=== PATIENT | female | born 1985 | race Caucasian/White ===

== ENCOUNTER 2021-04-27 17:45 | Observation (INO) | payer SELFPAY, OTHER ==
[2021-04-22 13:12] LABS: Hematocrit 43.8 % (37-47); Mean Corpuscular Hgb 28.1 pg (27.0-32.0); Mean Corpuscular Volume 87.8 fL (81-99); Mean Platelet Vol. 8.9 fl (6.2-12.0); Platelet Count 312 K/mm3 (150-450); RBC Distribution Width CV 12.7 % (11.6-14.6); RBC Distribution Width SD 40.9 fl (35.1-43.9); Red Blood Count 4.99 M/mm3 (4.2-5.4); White Blood Count 5.2 K/mm3 (4.4-11.0)
[2021-04-22 13:45] LABS: Prothrombin Time (Protime)PT. 12.8 SECONDS (11.7-14.9)
[2021-04-22 13:46] LABS: Partial Thromboplast Time 29.4 Seconds (24.1-36.2)
[2021-04-22 14:13] LABS: Creatinine, Serum 0.77 mg/dL (0.55-1.02); EST Glomerular Filtration Rate 91 mL/min (>60); Est Glom Filt Rate - Afr Amer 110 mL/min (>60); Magnesium 2.2 mg/dL (1.6-2.6)
--- NOTE | 2021-04-26 17:13 | PCM.HP.BLA ---
History and Physical Date of Admission: 04/27/21 Surgical History and Physical Evelyn Sousa, a 35 year old female 3 0 3 0 3, presents for LAVH/BSO on April 27, 2021 at 11:00. -- Chronic cyclic Pelvic Pain, Endometriosis -- Referral from [facility] for Low Pelvic Pain and Irregular Menses. 35 y.o. G 6 P 3 non-smoker with history since January of Irregular Menses and low pelvic pain that she admits has been for several years. Reports she seen her PCP at [facility] and was put on an OCP(Sprintec) to help regulate her menses and down regulate her ovaries to see if would help with the pain, she admits she started taking them, they didn't seem to help, so she stopped, then restarted them after not taking for 1 week. Her spouse had Vasectomy several years ago for control, as that is not a concern for her. Low Mid Pelvic Pain,Irregular Menses; Pain is cyclic. It occurs all the time. It is located in the lower abdomen. Evelyn characterizes the quality sharp. Evelyn characterizes the quality aching. Severity is moderate and not improving It is relieved by OCPs marginally effective a few years ago. Associated signs and symptoms are Irregular menses; has Bio-T implants in place about 3 weeks ago. Associated signs and symptoms are History of C. difficile years ago. Additional comments are: Referred by [facility].; Additional comments are: Pain seems to cycle when she does have menses. OCPs helped marginally between second and third , pain gets worse every year and now almost intolerable. MEDICATIONS HISTORY: ALLERGIES: NKDA Infections - Chicken pox Illnesses - none Accidents - None Hospitalizations - None Review of Systems: GENERAL - Denies fever, or chills SKIN - Denies skin changes EYES - Denies visual changes EARS - Denies difficulty hearing NOSE - Denies nasal congestion or bleeding MOUTH - Denies sore throat or difficulty swallowing NECK - Denies pain or swelling RESPIRATORY - Denies shortness of breath or wheezing CARDIOVASCULAR - Denies palpitations or chest pain GASTROINTESTINAL - Denies nausea, vomiting, diarrhea, constipation GENITOURINARY - Denies dysuria, frequency of urination, incontinence of urine MUSCULOSKELETAL - Denies joint or muscle pain NEUROLOGICAL - Denies localized numbness or weakness PSYCHIATRIC - Denies depression or anxiety ENDOCRINE - Denies heat or cold intolerance, weight loss or gain HEMATO-IMMUNOLOGIC - Denies excesive bleeding with cuts SOCIAL HISTORY: Alcohol Use - None Smoking - Never Diet - no special diet Lifestyle - moderate stress lifestyle and Exercise - regular Seat Belt Use - always Employer - Homemaker Illicit Drug Use - None Sexual Activity - Spouse-Sig Other Name - Harinder Spouse-Sig Other Occupation - [employer]) Children Name(s) - Mildred Dailey (10), German(13), Thomasrubéntammie (17) Control - Vasectomy FAMILY HISTORY: nc MENSTRUAL HISTORY: LMP Known?- DefiniteAmount/Duration - 7 days, Regularity - Regular, Frequency - monthly days, LMP - 04/11/21, Age Onset Menarche - 17 PAST PREGNANCIES: Total Pregnancies - 6; Full Term Pregnancies - 3; Premature - 0; Abortions, Induced - 0; Abortions, Spontaneous - 3; Ectopics - 0; Multiple Births - 0; Living Children - 3 PHYSICAL EXAM BP- 144/82 Sitting, Right arm, regular cuff Weight- 139.08490 lbs Height- 61.5 inch BMI:25.9 CONSTITUTIONAL - NAD, well nourished, and well developed SKIN - No rash, lesions, or ulcers HEENT - Normocephalic, PERRLA, EOMI NECK - No nodes, no nuchal rigidity and thyroid normal size and texture LYMPH NODES - Palpation of lymph nodes in neck and groins within normal limits LUNGS - CTA x2 without wheezes, crackles or rales CARDIAC - Regular rate and rhythm without rubs, murmurs, or gallops ABDOMEN - Without hepatosplenomegaly, distention, masses, rebound, or guarding; normal bowel sounds; no hernias EXTREMITIES - No edema or calf tenderness NEUROLOGICAL - Cranial nerves II-XII grossly intact PSYCHIATRIC - A and O to time, place, person, mood and affect External Genitial Vagina - non-tender without lesions Urethra/Urethral Meatus - non-tender Bladder - non-tender Vagina - vaginal byrne are pink and moist without loss of rugae and no evidence of atropy Cervix - without cervical motion tenderness and has normal size and features without evident lesions and mild CMT Uterus - multiparous size 6 cm & wt 75-125 g Adnexa - clear without massess or tenderness and increased tenderness both adnexa ASSESSMENT/PLAN: 1. Endometriosis Site Uns and Pelvic And Perineal Pain Longstanding and severe. Pain has now become almost unbearable since she is no longer having children as her had a vasectomy. We discussed treatment options including going back to OCPs, using Depo-Provera, proceeding with a diagnostic laparoscopy, or proceeding with hysterectomy. Patient desires the latter option given higher chance of eliminating her pain. Plan to proceed with a LAVH/BSO. Discussed RBA's and all questions answered.
[2021-04-27] VITALS (24 sets, daily range): BP systolic 87–131; BP diastolic 37–72; PULSE 43–80; RESP 14–18; TEMP 36.4–36.8; O2SAT 97–100; BMI 25.2
[2021-04-27] MEDS: Lactated Ringers 1,000 ML 40 ML IV ×2 (07:00→20:32)
[2021-04-27] MEDS: Acetaminophen 500 MG Tablet 1000 MG PO ×3 (07:00→23:04)
[2021-04-27] MEDS: Gabapentin 600 MG Tablet PO (07:00)
[2021-04-27 09:15] LABS: Internal QC Validated? YES +Cl - CLEAR BKGD; Pregnancy, Urine Negative Negative
--- NOTE | 2021-04-27 09:49 | PCM.OPRPT ---
Report of Operation Date of Procedure: 04/27/21 Pre-Operative Diagnosis: Endometriosis, Pelvic Pain Post-Operative Diagnosis: Endometriosis, Pelvic Pain Surgery/Procedure Performed:: Laparoscopic Assisted Vaginal Hysterectomy and Bilateral Salpingo-Oophorectomy Description of Surgical Findings:: 10 cm uterus with normal-appearing fallopian tubes and ovaries. Surgeon: Rk Max precinct police lieutenant: Jane Benites precinct police lieutenant: Reta Nathan Type of Anesthesia: General (Endotracheal) Anesthesiologist: Reta Nathan Specimen's removed: Uterus and bilateral fallopian tubes and ovaries Drains: Rudd to straight drain Estimated Blood Loss (mL): 100 cc Fluids Replaced: Crystalloid Description of Procedure: Surgeon: Rk Max MD, FACOG Indications: This is a 35-year-old who is been having problems with endometriosis and pelvic pain. Conservative measures have not been helpful. Given this the patient desires that we proceed the above procedure. She has been counseled regarding the risk and indications of this procedure including the possibility of bleeding, infection, and injury to surrounding structures such as bowel bladder. She also understands that after this procedure she will need to be on hormone replacement therapy for an indefinite period of time and this may not relieve the pain that she has been having. All questions were answered. Procedure: Patient was taken to the operating room where after induction of general anesthesia she was placed in the dorsal lithotomy position and prepped and draped in the usual sterile fashion. A Rudd catheter was placed and bladder drained and then removed. Anterior cervix was grasped with a tenaculum and anterior cervix circumscribed with cautery on a setting of 35 W coagulation. Anterior vaginal mucosa was undermined and a 4 x 4 raytec sponge was placed to identify the peritoneal reflection of the bladder intraperitoneally. Conn cannula was placed and attention was turned towards the laparoscopic portion of the procedure. Approximately 26 cc of half percent ropivacaine was injected subumbilically, suprapubically, and midway between. A 5 mm bladeless trocar was introduced subumbilically and intraperitoneal placement confirmed. CO2 insufflation was completed and, under direct visualization, a 5 mm bladeless trocar was introduced suprapubically. A 5 mm bladeless trocar was introduced midway between these 2 ports. Enseal was used to cauterize the infundibulopelvic ligaments to the level of the round ligament and the Raytec placed in the vagina was visualized. Scissors was used to open the peritoneum and under direct visualization a narrow Ho Ho Kus was placed vaginally; CO2 gas was stopped and attention turned toward the vaginal hysterectomy portion of the procedure. The posterior aspect of the cervix was circumscribed with a knife and posterior peritoneum easily entered. Progressive bites were taken on either side of the uterine cervix and each pedicle ligated with 0 Vicryl suture. Superior pedicles were ligated ?2 with 0 Vicryl suture and sidewall pedicles were examined and oversewn where necessary with [id number] 0 Vicryl suture to achieve hemostasis. Posterior vaginal cuff was oversewn with running locked 0 Vicryl suture. Hemostasis was noted and peritoneum was closed in a pursestring fashion incorporating superior pedicles into the stitch. Vaginal cuff was then closed front to back with interrupted [id number] 0 Vicryl suture. Hemostasis was noted. Rudd catheter was reinserted and clear yellow urine was noted and the catheter was again removed. Attention was turned toward the laparoscopic portion of the procedure. CO2 insufflation was completed and pedicles were examined and noted to be hemostatic. Umm was placed across the vaginal cuff to help with postoperative hemostasis. Laparoscopic instruments with as much CO2 gas as possible was removed and skin incisions were closed with interrupted 4-0 Monocryl suture. Steri-Strips and OpSite was placed across the incisions. Patient tolerated the procedure well was taken to recovery room in satisfactory condition; sponge instrument and needle counts were all reportedly correct. Estimated blood loss for the case was 100 cc. Ancef 2 g IV was given prior to beginning the operative procedure. There were no apparent complications of the surgery. Specimen to pathology was uterus and bilateral fallopian tubes and ovaries. Grafts/Implants Used: None Complications None Admit VTE Documentation VTE Present on Admission: Yes VTE Mechan Device Prophylaxis: SCD's
[2021-04-27 09:50] LABS: Bedside Glucose 80 mg/dL (70-110)
--- NOTE | 2021-04-27 09:55 | PCM.DC ---
Discharge Instructions Diet Discharge Diet: No restrictions Activity Discharge Activity: May Shower and May Take a Tub Bath May resume sexual activity in: 6 weeks (nothing in the vagina.) Lifting Restrictions: 25 pounds for 6 weeks. Additional Activity Instructions:: Nothing in the vagina for 6 weeks please; no lifting more than 20-25 lbs for 6 weeks. Use Ibuprophen 800 mg orally every 8 hours as needed for pain. Can also add Tylenol 1000 mg every 8 hours if needed for pain. If Ibuprophen and Tylenol are not effective then use the Oxycodone but keep in mind it can cause serious constipation issues. Drink lots of water. Call if bleeding more than a pad per hour. Use the colace as constipation is a big issue after this type of surgery. Steps and walking are OK. Activity is encouraged but do not over do it !! Dressing / Incision Call your doctor if your incision/area has: Continuous Slow Oozing, Sudden Increased Bleeding, Increased Pain/ Swelling, Increased Redness and Foul Smelling Discharge Call your doctor if you observe: Fever of 101 or Higher, Inability to urinate, Inability to have a bowel movement, Using more than 1 pad per hour and - (Some vaginal bleeding may be noted for up to 4-8 weeks.) Cleanse incision/area with: - (Let the soapy water run over your incision, rinse and pat dry.) Additional Dressing/Incision Instructions:: The white strips (Steri Strips) on your incisions will fall off on their own. If they fall off and it bothers you it is okay to put Band-Aids across the incisions. Follow Up Care Please Follow Up With: Rk Max MD When: Call [phone] for an appointment to be seen in 2 weeks. Test Results: Test results from this visit will be discussed in further detail at your follow-up appointment, if applicable. Discharge Plan Admission Primary Reason for Your Visit: Vaginal Hysterectomy Attending Provider: Rk Max Primary Care Provider: Kem Shook Discharge Orders/Prescriptions Prescriptions: New oxycodone 5 mg capsule 5 mg PO Q6H PRN (Reason: pain) 7 Days Qty: 10 RF: 0 docusate sodium 100 mg tablet 100 mg PO BID PRN (Reason: constipation) Qty: 60 RF: 1 estradiol 2 mg tablet 2 mg PO DAILY Qty: 90 RF: 4 Continued multivitamin Capsule 1 cap PO DAILY RF: 0 Referrals / Follow Up: Kem Shook MD [Primary Care Provider] - Disposition Disposition (needs filled in before D/C Order can be placed): Home, Self Care
[2021-04-27] MEDS: Cefazolin 2 GM in 0.9% Normal Saline 100 ML IV (10:59)
--- NOTE | 2021-04-27 11:05 | HYST_PTH ---
PATIENT: SYLVIA SCHMIDT LOC: MS2 U#:[id number] AGE/SX: 35/F ROOM: MS209 RE04/27/[address]: Dr. Rk Max MD : [id number] BED: 1 DIS: 04/28/2021 SPEC #: [id number] RECD: 04/27/21 13:27 STATUS: NICOLAS MACHADO #: [id number] LAKEISHA: 04/27/21 11:[address]: Rk Max DEPT: SURGICAL PATHOLOGY RECD BY: Johnathon Masters ENTERED: 04/28/21 10:14 SP TYPE: HYSTERECT OTHR DR: Dr. Kem Shook MD Tissues: Uterus, NOS Procedures: Surgery Specimen Level V HEADER OPERATION: ERAS, hysterectomy, LAVH, BSO PRE-OP DIAGNOSIS: Chronic pelvic pain, endometriosis TISSUE SUBMITTED: Uterus, bilateral fallopian tubes and ovaries MICROSCOPIC DIAGNOSIS Uterus, bilateral fallopian tubes and ovary, hysterectomy and bilateral salpingo-oophorectomy: Cervix ? mild chronic inflammation. Endometrium ? proliferative endometrium. Myometrium - no pathologic diagnosis. Bilateral fallopian tubes - no pathologic diagnosis. Right ovary ? physiologic follicular and hemorrhagic corpus luteal cysts. Left ovary - physiologic follicular cysts. Right paratubal cyst. SJ:rg 04/29/2021 MICROSCOPIC DESCRIPTION Slides are reviewed. GROSS DESCRIPTION Received in fixative is one container labeled with the patient's name and designated uterus, bilateral fallopian tubes and ovaries. The specimen consists of a hysterectomy specimen consisting of uterus with cervix, attached right fallopian tube and ovary and detached left fallopian tube and ovary. The uterus with cervix weighs 105 gm and measures 10 x 6 x 5 cm. The serosal surface is bhardwaj, glistening. The ectocervical mucosa is unremarkable. The external os is oval in contour. The endocervical canal measures 3.5 cm in length and the endocervical mucosa is unremarkable. The endometrial cavity measures 5 cm in length and 2.5 cm width. The endometrium does not show any lesion and measures 0.2 cm in thickness. Sections of the uterine wall do not reveal any mass lesion and measures 2.5 cm in thickness. The right fallopian tube measures 8 cm in length and 0.7 cm in diameter. The fimbrial end is identified. No tubo-ovarian adhesions are noted. A paratubal cyst is noted measuring 1.5 cm in greatest dimension. It is filled with clear fluid. Sections of fallopian tube reveal unremarkable cut surfaces. The soft to cystic right ovary measures 4.5 x 3.5 x 2.5 cm. Sections reveal multiple cysts filled with clear fluid. The largest cyst measures 1 cm in greatest dimension. A corpus luteum is also noted which measures 1.5 cm in greatest dimension. The left fallopian tube measures 4.5 cm in length and 0.5 cm in dimeter. The fimbrial end is identified. Sections reveal unremarkable cut surfaces. The soft to cystic left ovary measures 3 x 3 x 2 cm. Sections reveal multiple cysts filled with clear fluid. The largest cyst measures 0.7 cm in greatest dimension. [employer]ractor [employer] sections are submitted in 12 cassettes as follows: 1??anterior cervix, 2??posterior cervix, 3 & 4 - anterior uterine wall, 5 & 6 - posterior uterine wall, 7 - right fallopian tube and paratubal cyst, 8 & 9 - right ovary, 10 - left fallopian tube, 11 & 12 - left ovary. / SJ:rg 04/28/21 TC:5 CPT: 03278
[2021-04-27] MEDS: Lactated Ringers 1,000 ML 100 ML IV (12:30)
[2021-04-27] MEDS: Ondansetron 4 MG/2 ML Vial IV (12:40)
[2021-04-27] MEDS: Ropivacaine 0.5% 30 ML Vial (12:40)
[2021-04-27] MEDS: Ketorolac 30 MG/ML Syringe IV ×2 (17:57→23:04)
[2021-04-27] MEDS: Docusate Sodium 100 MG Capsule PO (18:40)
[2021-04-27] MEDS: oxyCODONE 5 MG Tablet PO (18:40)
[2021-04-27] MEDS: 0.9% Saline Lock 10 ML Syringe IV (23:04)
[2021-04-28 04:48] VITALS: BP 110/65; PULSE 71; RESP 16; TEMP 36.7; O2SAT 96
[2021-04-28] MEDS: Acetaminophen 500 MG Tablet 1000 MG PO (04:50)
[2021-04-28] MEDS: Ketorolac 30 MG/ML Syringe IV (04:50)
[2021-04-28] MEDS: 0.9% Saline Lock 10 ML Syringe IV (04:51)
[2021-04-28 06:40] VITALS: O2SAT 97
[2021-04-28 06:49] LABS: Hematocrit 36.7 % (37-47); Hemoglobin 11.7 g/dL (12.0-15.0); Mean Corp Hgb Conc 31.9 g/dL (32-36); Mean Corpuscular Hgb 28.3 pg (27.0-32.0); Mean Corpuscular Volume 88.6 fL (81-99); Mean Platelet Vol. 8.7 fl (6.2-12.0); Platelet Count 255 K/mm3 (150-450); RBC Distribution Width SD 42.1 fl (35.1-43.9); Red Blood Count 4.14 M/mm3 (4.2-5.4); White Blood Count 11.8 K/mm3 (4.4-11.0)
[2021-04-28] MEDS: oxyCODONE 5 MG Tablet PO (09:00)
[2021-04-28] MEDS: Docusate Sodium 100 MG Capsule PO (09:01)
--- NOTE | 2021-04-28 09:59 | PCM.PN.OB ---
Subjective Subjective Patient without complaints. Tolerating diet well. Nausea noted last evening has cleared. Patient ready to go home. Objective Data Objective Data Wounds are clean, dry, intact. Good urine output. Hemoglobin okay. Vital Signs: Vital Signs Temp Pulse Resp BP Pulse Ox 98.1 F 71 16 110/65 97 04/28/21 04:48 04/28/21 04:48 04/28/21 04:48 04/28/21 04:48 04/28/21 06:40 Oxygen Flow Rate (L/min) 6 Oxygen Delivery Method Room Air Weight: 138 lb Body Mass Index (BMI) 25.2 Intake & Output: Intake and Output for Last 24 Hours 04/26/21 04/27/21 04/28/21 23:59 23:59 23:59 Intake Total 2113.33 / 2113.33 1033.33 / 1033.33 Output Total 600 / 600 400 / 400 Balance 1513.33 / 1513.33 633.33 / 633.33 Lab / Micro Data Result Diagrams: 04/28/21 06:24 04/22/21 12:07 Labs: Laboratory Results - last 24 hr 04/28/21 06:24: WBC 11.8 H, RBC 4.14 L, Hgb 11.7 L, Hct 36.7 L, MCV 88.6, MCH 28.3, MCHC 31.9 L, RDW Std Deviation 42.1, RDW Coeff of Kane 13.0, Plt Count 255, MPV 8.7 Micro: Microbiology 04/22/21 12:22 Interface Orders SARS-CoV-2 Antigen (Rapid) - Final Assessment & Plan (1) Endometriosis: PLAN: Doing well postoperative day #1 status post laparoscopic-assisted vaginal hysterectomy and bilateral salpingo-oophorectomy. Will discharge to home with routine instructions.
== END 2021-04-28 10:20 | disposition home or self-care (01) ==
LOC: SDC 18:03 → MS2 18:04
PROVIDERS: Anesthesiology; Admitting Provider Obstetrics & Gynecology; PCP Family Medicine; Referring Provider Obstetrics & Gynecology; Visit Provider Obstetrics & Gynecology
PROC: 0UT9FZZ Resection of Uterus, Via Natural or Artificial Opening With Percutaneous Endoscopic Assistance (ICD-10-PCS; CPT 58552; principal; 2021-04-27 10:40)
DX: N80.9 Endometriosis, unspecified (principal); R10.2 Pelvic and perineal pain; G89.29 Other chronic pain; N83.11 Corpus luteum cyst of right ovary; N83.02 Follicular cyst of left ovary; N83.01 Follicular cyst of right ovary; Z87.19 Personal history of other diseases of the digestive system
CPT/HCPCS: 58552; 36415; 81025; 82565; 82962; 83735; 85027; 85610; 85730; 86850; 86900; 86901; 87426; 88307; 96374; 96376; 99218; 99251; C9803; J7120; A4216; C1760; G0378; G0463; J2405